=== PATIENT | male | born 1955 | race Two or more races ===

== ENCOUNTER 2019-05-05 10:25 | Emergency (ER) | payer SELFPAY ==
[~2019-05-05] VITALS: Ht 172.7 cm; Wt 90.7 kg
--- NOTE | 2019-05-05 11:00 | NUR ---
ETOH, [facility] TO ER- NO ACUTE DISTRESS 1:1 SITTER PROVIDED
--- NOTE | 2019-05-05 14:35 | NUR ---
THE PATIENT WAS ASSESSED AT BEDSIDE; NO ACUTE EVENTS ASLEEP
--- NOTE | 2019-05-05 16:21 | NUR ---
Patient discharged to home in stable condition. Written and verbal after care instructions given. Patient verbalizes understanding of instruction. ABLE TO WALK, STEADY GAIT NOTED
[2019-05-05 16:22] VITALS: BP 132/92
--- NOTE | 2019-05-05 16:22 | NUR ---
THE PATIENT DENIES BEING HOMELESS
== END 2019-05-05 16:22 | disposition home or self-care (01) ==
LOC: ER 10:27
DX: G93.40 Encephalopathy, unspecified (principal); F10.129 Alcohol abuse with intoxication, unspecified; Y90.9 Presence of alcohol in blood, level not specified; Z59.0 Homelessness

== ENCOUNTER 2019-05-05 18:36 | Emergency (ER) | payer SELFPAY ==
[~2019-05-05] VITALS: Ht 177.8 cm; Wt 95.3 kg
--- NOTE | 2019-05-05 20:49 | NUR ---
[id number] FROM [facility] FOR ETOH, R FOOT LAC, NO ACTIVE BLEEDING. PT [id number], VSS. RR EVEN & UNLABORED. DENIES ANY OTHER DISCOMFORT @ THIS TIME. WILL CONT TO MONITOR.
--- NOTE | 2019-05-05 22:27 | NUR ---
PT TO CT VIA [facility].
[2019-05-05] MEDS ORDERED: TDAP [DIPH/PERTUSSIS/TET] 0.5 ML VIAL IM ONE ×2 (22:30→22:50)
--- NOTE | 2019-05-05 22:55 | NUR ---
Patient is resting comfortably in bed with eyes closed. Easily aroused. VSS
--- NOTE | 2019-05-06 00:02 | NUR ---
Patient is resting comfortably in bed with eyes closed. Easily aroused. VSS
[2019-05-06] MEDS ORDERED: IBUPROFEN 600 MG TABLET PO ONE (02:21)
[2019-05-06] MEDS ORDERED: IBUPROFEN 200 MG TABLET ONE (02:21)
[2019-05-06] MEDS ORDERED: IBUPROFEN 400 MG TABLET PO ONE (02:30)
--- NOTE | 2019-05-06 02:33 | NUR ---
Patient is resting comfortably in bed with eyes closed. Easily aroused. VSS
[2019-05-06] MEDS ORDERED: CHLORDIAZEPOXIDE HCL 25 MG CAPSULE ONE ×3 (04:35→18:38)
[2019-05-06] MEDS ORDERED: CHLORDIAZEPOXIDE HCL 25 MG CAPSULE PO ONE ×3 (05:00→18:30)
--- NOTE | 2019-05-06 08:00 | NUR ---
RESTING, AROUSABLE. NO DISTRESS NOTED.
--- NOTE | 2019-05-06 12:00 | NUR ---
Able to take sips of clear liquids w/o problems. Tolerating po fluid. Dozing on/off
--- NOTE | 2019-05-06 14:14 | NUR ---
Pt now awake asking for medications. +Tremors/tremolous ER provider Dr Terrell made aware
[2019-05-06] MEDS ORDERED: MORPHINE SULFATE INJ 2 MG/ML DISP.SYRIN IM ONE ×2 (15:00→18:30)
[2019-05-06] MEDS ORDERED: MORPHINE SULFATE INJ 2 MG/ML DISP.SYRIN ONE ×2 (15:15→18:38)
--- NOTE | 2019-05-06 15:32 | NUR ---
FOOD TRAY PROVIDED, TOLERATED PO WELL,
[2019-05-06] MEDS ORDERED: IV NS 0.9% 1,000 ML BAG IV ONE (16:30)
[2019-05-06] MEDS ORDERED: LORAZEPAM INJ 2 MG/ML VIAL IVP ONE (16:30)
[2019-05-06] MEDS ORDERED: LORAZEPAM INJ 2 MG/ML VIAL ONE (16:31)
[2019-05-06 16:33] LABS: BASOPHILS # (AUTO) 0.1 /CMM (0.0-0.2); BASOPHILS % (AUTO) 0.6 % (0.0-2.0); EOSINOPHILS % (AUTO) 0.2 % (0.0-6.0); HEMATOCRIT 36 % (39-51); HEMOGLOBIN 12.1 g/dL (13.5-17.5); LYMPHOCYTES # (AUTO) 1.1 /CMM (0.8-4.8); LYMPHOCYTES % (AUTO) 14.2 % (20.0-44.0); MEAN CORPUSCULAR HGB CONC 33 g/dl (31.0-36.0); MEAN CORPUSCULAR VOLUME 91 fL (80-96); MONOCYTES # (AUTO) 0.6 /CMM (0.1-1.30); MONOCYTES % (AUTO) 6.9 % (2.0-12.0); NEUTROPHILS # (AUTO) 6.3 /CMM (1.8-8.9); NEUTROPHILS % (AUTO) 78.1 % (43.0-81.0); PLATELET COUNT (AUTO) 177 /CMM (150-450); RED BLOOD CELL COUNT(AUTO) 3.98 MIL/uL (4.5-6.0)
[2019-05-06 16:42] LABS: CALCIUM, SERUM 8.3 mg/dL (8.5-10.1); CARBON DIOXIDE 26 mmol/L (21-32); CHLORIDE 100 mmol/L (98-107); CREATININE 0.6 mg/dL (0.6-1.3); GLUCOSE 131 mg/dL (74-106); POTASSIUM 4.4 mmol/L (3.5-5.1); SODIUM SERUM 135 mmol/L (136-145); UREA NITROGEN, BLOOD 11 mg/dL (7-18)
[2019-05-06 16:49] LABS: ACETAMINOPHEN < 2 ug/ml (10-30); ALANINE AMINOTRANSFERASE 38 U/L (12-78); ALBUMIN 3.2 g/dL (3.4-5.0); ALCOHOL, BLOOD < 3 mg/dL (0-0); ALKALINE PHOSPHATASE 121 U/L (46-116); ASPARTATE AMINOTRANSFERASE 61 U/L (15-37); BILIRUBIN,DIRECT 0.2 mg/dL (0.0-0.2); BILIRUBIN,TOTAL 1.1 mg/dL (0.2-1.0); SALICYLATE 1.4 mg/dL (2.8-20.0); TOTAL PROTEIN, SERUM 6.9 g/dL (6.4-8.2)
--- NOTE | 2019-05-06 17:08 | NUR ---
PATIENT IN BED, AWAKE, HOOKED TO MONITOR, KEPT SAFE AND COMFORTABLE.
[2019-05-06] MEDS ORDERED: IV NS 0.9% 1,000 ML IV PRN (18:58)
[2019-05-06] MEDS ORDERED: LORAZEPAM INJ 2 MG/ML VIAL IV PRN (19:00)
[2019-05-06] MEDS ORDERED: ONDANSETRON HCL/PF 4 MG/2 ML VIAL IVP PRN (19:00)
[2019-05-06] MEDS ORDERED: MAGNESIUM HYDROXIDE 30 ML UDC PO PRN (19:00)
[2019-05-06] MEDS ORDERED: HYDROCODONE/APAP 5/325MG 1 EACH TABLET PO PRN (19:00)
[2019-05-06] MEDS ORDERED: MAG HYDROX/AL HYDROX/SIMETH 30 ML UDC PO PRN (19:00)
[2019-05-06] MEDS ORDERED: Z GUARD REMEDY 2 OZ OINT TP PRN (19:00)
[2019-05-06] MEDS ORDERED: ACETAMINOPHEN 325 MG TABLET PO PRN (19:00)
--- NOTE | 2019-05-06 19:16 | NUR ---
Patient does not wish to proceed with medical care recommended by Dr. BRANHAM. Patient given information related to possible complications, up to and including , which could occur as a result of leaving the hospital at this time. Patient verbalizes understanding of risks involved due to leaving against medical advice. Patient has signed AMA form. Patient signed homeless waiver form, patient insisted being placed on previous living arrangement, patient in proper clothing, ambulatory with steady gait, minimal tremors noted. Name band removed. Refuses offer of long-term placement. Patient given list of available shelters in surrounding area. All belongings returned.
--- NOTE | 2019-05-06 19:23 | NUR ---
PATIENT SIGNED HOMELESS DISCHARGE FORM.
[2019-05-06 19:25] VITALS: BP 159/90
[2019-05-06] MEDS ORDERED: CHLORDIAZEPOXIDE HCL 25 MG CAPSULE PO SCH (21:00)
== END 2019-05-06 19:26 | disposition left against medical advice (07) ==
LOC: ER 18:37
DX: S00.01XA Abrasion of scalp, initial encounter (principal); S90.812A Abrasion, left foot, initial encounter; F10.129 Alcohol abuse with intoxication, unspecified; Z86.73 Personal history of transient ischemic attack (TIA), and cerebral infarction without residual deficits; Z59.0 Homelessness; W19.XXXA Unspecified fall, initial encounter; Y93.89 Activity, other specified; Y92.89 Other specified places as the place of occurrence of the external cause; Y99.8 Other external cause status; Y90.0 Blood alcohol level of less than 20 mg/100 ml
CPT/HCPCS: 36415; 70450; 72125; 80048; 80076; 80307; 80329; 83605; 85025; 90471; 90715; 96372 ×2; 96374; 99284; G0480; J2060; J2270 ×2; J7030